=== PATIENT | male | born 1990 ===

== ENCOUNTER 2024-11-22 16:13 | Outpatient (CLI) | payer OTHER, SELFPAY ==
--- NOTE | ~2024-11-22 | XR_ITS ---
CHEST RADIOGRAPH, PA AND LATERAL CLINICAL HISTORY: POSITIVE QUANTIFERON TEST . COMPARISON: None available TECHNIQUE: PA and lateral views of the chest. FINDINGS The cardiomediastinal silhouette is unremarkable. The lungs are clear. Visualized osseous structures and soft tissues are unremarkable. IMPRESSION: No focal infiltrate or effusion. Reviewed, dictated and finalized at location A. [employer]
== END 2024-11-22 16:14 | disposition home or self-care (01) ==
LOC: MICIMG 16:19
PROVIDERS: PCP Nurse Practitioner Psychiatric/Mental Health; Visit Provider Nurse Practitioner Psychiatric/Mental Health
DX: R76.12 Nonspecific reaction to cell mediated immunity measurement of gamma interferon antigen response without active tuberculosis (principal)
CPT/HCPCS: 71046